=== PATIENT | male | born 1975 | race Caucasian/White ===

== ENCOUNTER 2022-08-30 16:27 | Observation (INO) | payer OTHER ==
[2022-08-30 16:46] VITALS: BMI 42.5
[2022-08-30 17:22] LABS: HEMATOCRIT 42.7 % (35.4-49); HEMOGLOBIN 14.8 G/dL (11.7-16.9); MCH 33.1 pg (25.7-33.7); MCHC 34.7 g/dl (32.0-35.9); MEAN CELL VOLUME 95.4 fl (80-96); MEAN PLT VOLUME 8.9 fl (7.5-11.1); PLATELET COUNT 245.2 10^3/uL (134-434); RBC 4.48 10^6/uL (4.00-5.60); RDW 12.3 % (11.9-15.9); WHITE BLOOD COUNT 7.8 10^3/uL (4.0-10.8)
[2022-08-30 17:24] LABS: PLATELET ESTIMATE ADEQUATE
[2022-08-30 17:50] LABS: ALBUMIN 4.2 g/dl (3.4-5.0); BILIRUBIN,TOTAL 0.8 mg/dl (0.2-1); BLOOD UREA NITROGEN 16.1 mg/dl (7-18); CALCIUM 8.7 mg/dl (8.5-10.1); CREATININE 0.8 mg/dl (0.6-1.3); POTASSIUM 3.6 mmol/L (3.5-5.1); SGOT/AST 22.5 U/L (15-37); SGPT/ALT 29.3 U/L (7-52); TOT PROT 7.2 g/dl (6.4-8.2)
[2022-08-30] MEDS ORDERED: ASPIRIN 81 MG CHEWABLE TABLETS PO ONE (20:51)
[2022-08-30] MEDS ORDERED: ASPIRIN 81 MG CHEWABLE TABLETS ONE (21:05)
[2022-08-30 22:23] VITALS: RESP 18
[2022-08-31 08:11] LABS: CALCIUM 8.4 mg/dl (8.5-10.1); CREATININE 0.9 mg/dl (0.6-1.3); MAGNESIUM 2.2 mg/dL (1.8-2.4); POTASSIUM 3.7 mmol/L (3.5-5.1)
[2022-08-31 09:11] VITALS: BP 100/87; PULSE 72; TEMP 97.6
[2022-08-31 09:21] LABS: N-TERMINAL BNP 21.5 pg/ml (5-125)
[2022-08-31] MEDS ORDERED: ENOXAPARIN NA (PORCINE) 40 MG/0.4 ML DISP.SYRIN SQ SCH (10:00)
[2022-08-31 12:03] LABS: BASO % 0.4 % (0-2.0); HEMATOCRIT 42.9 % (35.4-49); HEMOGLOBIN 14.3 GM/dL (11.7-16.9); LYMPH % 22.2 % (8-40); MCH 31.4 pg (25.7-33.7); MCHC 33.3 g/dl (32.0-35.9); MEAN CELL VOLUME 94.2 fl (80-96); MEAN PLT VOLUME 9.1 fl (7.5-11.1); NEUT % 67.4 % (42.8-82.8); PLATELET COUNT 232 10^3/uL (134-434); RBC 4.56 M/mm3 (4.00-5.60); RDW 12.6 % (11.9-15.9); WHITE BLOOD COUNT 7.6 K/mm3 (4.0-10.0)
[2022-08-31] MEDS ORDERED: ATORVASTATIN CA 20 MG TABLET (FP) PO SCH (22:00)
== END 2022-08-31 11:20 | disposition home or self-care (01) ==
LOC: FER 16:27 → FM/S 18:37
PROVIDERS: ADMIT Internal Medicine; ATTEND Internal Medicine
DX: I24.9 Acute ischemic heart disease, unspecified (principal); E78.5 Hyperlipidemia, unspecified; E66.01 Morbid (severe) obesity due to excess calories; Z68.41 Body mass index [BMI] 40.0-44.9, adult; J45.909 Unspecified asthma, uncomplicated; G47.33 Obstructive sleep apnea (adult) (pediatric); Z99.81 Dependence on supplemental oxygen
CPT/HCPCS: 36415; 71045-TC-FY; 80048; 80053; 80061; 83036; 83735; 83880; 84443; 84484; 85025; 93005; 94660; 99285-25; G0378